=== PATIENT | female | born 1990 | race Caucasian/White ===

== ENCOUNTER → 2022-02-19 15:52 | Outpatient (CLI) | payer OTHER, SELFPAY ==
--- NOTE | ~2022-02-19 | MR_ITS ---
EXAMINATION: MR lumbar spine wo con DATE: 02/19/2022 16:27 INDICATION: Lumbosacral radiculopathy TECHNIQUE: Magnetic resonance imaging (MRI) of the lumbar spine was performed without intravenous con trast. Sequences included sagittal T2-weighted FSE, sagittal T2-weighted FS FSE, sagittal T1-weighted FSE, and axial T2-weighted FSE. COMPARISON: None FINDINGS: 1-2 mm retrolisthesis L4 on L5 and L5 on S1. Vertebral body heights are normal. There is diffuse red marrow reexpansion at the visualized spine. Disc heights are normal. The conus medullaris terminates at L2. There is normal signal in the caudal spinal cord. Paravertebral soft tissues are unremarkable. The following disc levels are specifically discussed: T12-L1: The disc does not extend beyond the endplate margin. There is mild bilateral facet joint oste oarthritis. There is no neural foraminal stenosis. There is no central canal stenosis. L1-L2: The disc does not extend beyond the endplate margin. There is mild right and mild to moderate left facet joint osteoarthritis. There is no neural foraminal stenosis. There is no central canal juhi nosis. L2-L3: The disc does not extend beyond the endplate margin. There is mild left and mild to moderate r ight facet joint osteoarthritis. There is no neural foraminal stenosis. There is no central canal juhi nosis. L3-L4: Small disc extrusions at the bilateral foraminal zones. There is mild bilateral facet joint os teoarthritis. There is mild left and minimal right neural foraminal stenosis. There is no central can al stenosis. L4-L5: Disc is mildly bulging. There is minimal bilateral facet joint osteoarthritis. There is mild b ilateral neural foraminal stenosis. There is no central canal stenosis. L5-S1: Disc is mildly bulging. There is mild bilateral facet joint osteoarthritis. There is mild bila teral neural foraminal stenosis. There is no central canal stenosis. IMPRESSION: 1. Mild lower lumbar spondylosis. Reviewed, dictated and finalized at location A.
== END ==
PROVIDERS: Visit Provider Nurse Practitioner Family
DX: M47.27 Other spondylosis with radiculopathy, lumbosacral region (principal)
CPT/HCPCS: 72148